=== PATIENT | male | born 1980 ===

== ENCOUNTER 2016-09-19 07:53 | Day surgery (SDC) | payer SELFPAY ==
[2016-09-19 08:13] VITALS: BMI 274.0
[2016-09-19] MEDS ORDERED: Midazolam 2 MG/2 ML VIAL ONE (09:32)
[2016-09-19] MEDS ORDERED: Propofol 10 mg/ml Inj (20 ML) ONE ×2 (09:32)
[2016-09-19] MEDS ORDERED: Lactated Ringer's 500 ML IV ONE (09:34)
--- NOTE | 2016-09-19 09:42 | CP.SDSHP ---
Same Day Surgery H & P - History Proposed Procedure: EGD and Colonoscopy Pre-Op Diagnosis: Abdominal pain. Abnormal CT imaging of GI Tract. - Previous Medical/Surgical History Comments: None Previous Surgical History: none - Allergies Allergies: Allergies No Known Allergies Allergy (Verified 03/25/15 18:37) - Current Medications Current Medications: none - Physical Exam General Appearance: wdwn nad Vital Signs: Vital Signs 09/19/16 08:00 Temperature 97 F L Pulse Rate 58 L Respiratory 19 Rate Blood Pressure 123/71 O2 Sat by Pulse 100 Oximetry Mental Status: Alert & Oriented x3 Heart: WNL Lungs: WNL GI: WNL - {Optional Preform as Required} Abdomen: WNL - Impression Impression: Abnormal GI Tract imaging- R/O IBD Pt. Evaluated Today:Candidate for Anesthesia & Procedure: Yes - Date & Time Date: 09/19/16 Time: 09:42 Short Stay Discharge - Short Stay Discharge Admitting Diagnosis/Reason for Visit: ABNORMAL FINDINGS ON DX IMAGING OF PRT DIGESTIVE T Disposition: HOME/ ROUTINE
[2016-09-19 10:28] VITALS: TEMP 98.6
[2016-09-19 10:34] VITALS: O2SAT 100
[2016-09-19 11:08] VITALS: BP 110/62; PULSE 65; RESP 14
[2016-09-22 01:29] LABS: ASCA IGA <20.0 U (()); ASCA IGG <20.0 U (())
== END 2016-09-19 11:30 | disposition home or self-care (01) ==
LOC: C.ENDO 07:53
PROVIDERS: ATTEND Internal Medicine Gastroenterology
DX: K64.8 Other hemorrhoids (principal); R10.9 Unspecified abdominal pain
CPT/HCPCS: 36415; 43239; 45378; 86021; 86140; 86671; 88305; J2001; J2250; J2704; J7120

== ENCOUNTER 2017-06-25 09:39 | Emergency (ER) | payer OTHER, SELFPAY ==
[2017-06-25 09:39] VITALS: BMI 274.0
[2017-06-25 09:50] VITALS: BP 132/87; PULSE 54; RESP 20; TEMP 98.5; O2SAT 100
--- NOTE | 2017-06-25 10:23 | C.PDOC ---
History Of Present Illness 37-year-old male, presents to the emergency department with complaints of left- sided lower back pain, that radiates down the buttock and left leg, intermittently for the past six months. Patient notes that pain worsened this morning, resulting in him coming to the ED for evaluation. Denies numbness/ weakness, tingling, bladder/bowel incontinence, or any other associated symptoms. No other complaints at this time. Time Seen by Provider: 06/25/17 10:13 History Per: Patient History/Exam Limitations: no limitations Onset/Duration Of Symptoms: Days Current Symptoms Are (Timing): Still Present Past Medical History Reviewed: Historical Data, Nursing Documentation, Vital Signs Vital Signs: Last Vital Signs Temp 98.5 F 06/25/17 09:48 Pulse 54 L 06/25/17 09:48 Resp 20 06/25/17 09:48 BP 132/87 06/25/17 09:48 Pulse Ox 100 06/25/17 10:35 Family History: States: No Known Family Hx - Social History Hx Tobacco Use: No Hx Alcohol Use: No Hx Substance Use: No - Immunization History Hx Tetanus Toxoid Vaccination: No Hx Influenza Vaccination: No Hx Pneumococcal Vaccination: No Review Of Systems Constitutional: Negative for: Fever Respiratory: Negative for: Shortness of Breath Gastrointestinal: Positive for: Constipation. Negative for: Nausea, Vomiting, Abdominal Pain Musculoskeletal: Positive for: Back Pain, Leg Pain Neurological: Negative for: Weakness, Numbness Physical Exam - Physical Exam Appears: Well, Non-toxic, No Acute Distress Skin: Warm, Dry, No Rash Head: Atraumatic Eye(s): bilateral: Normal Inspection Neck: Normal ROM Chest: Symmetrical Cardiovascular: Rhythm Regular, No Murmur Respiratory: Normal Breath Sounds, No Accessory Muscle Use Gastrointestinal/Abdominal: Soft, No Tenderness, No Distention Extremity: Normal ROM, No Tenderness, No Calf Tenderness, No Deformity Neurological/Psych: Oriented x3, Normal Motor, Normal Sensation, Other ( reflexes sym, (-) Babinski, No clonus) ED Course And Treatment O2 Sat by Pulse Oximetry: 100 (on RA) Pulse Ox Interpretation: Normal Progress Note: Patient treated with Toradol for pain and will be discharged with Rx for Naprosyn. pt advised to take MiraLax at home for constipation and f/ u with PMD outpatient. All questions were answered. Patient agreeable with plan. Disposition - Disposition Referrals: [facility] [Outside] Disposition: HOME/ ROUTINE Disposition Time: 10:23 Condition: STABLE Additional Instructions: Please follow up with your doctor. Return to the ER for any worsening symptoms or for any other concerns. Prescriptions: Naproxen [Naprosyn] 500 mg PO Q12H PRN #10 tablet PRN Reason: Pain, Moderate (4-7) Instructions: High Fiber Diet (ED), Sciatica (ED) Print Language: AUSTRALIAN - Clinical Impression Clinical Impression: Sciatica - Scribe Statement The provider has reviewed the documentation as recorded by the Scribe (Joe Nguyen) All medical record entries made by the Scribe were at my direction and personally dictated by me. I have reviewed the chart and agree that the record accurately reflects my personal performance of the history, physical exam, medical decision making, and the department course for this patient. I have also personally directed, reviewed, and agree with the discharge instructions and disposition.
== END 2017-06-25 10:30 | disposition home or self-care (01) ==
LOC: C.ER 09:39
DX: M54.30 Sciatica, unspecified side (principal)
CPT/HCPCS: 96372; 99282; J1885